=== PATIENT | male | born 1995 | race Caucasian/White ===

== ENCOUNTER 2019-05-30 20:30 | Emergency (ER) | payer SELFPAY ==
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
[2019-05-31 00:25] VITALS: BP 128/77
--- NOTE | 2019-05-31 05:36 | Diagnostic Imaging Report ---
LOU REN [facility] [id number] [id number] Report Submission Date: May 30, 2019 10:03:09 PM CDT Patient Study Name: GILMA JAMISON Date: May 30, 2019 9:00:55 PM CDT Modality Type: DX Gender: M Description: FOOT 3 VIEWS OR MORE : 89 Institution: [facility] Physician: LOU REN Left foot three views History: Dorsal foot pain Findings: The left foot is unremarkable without fracture, dislocation, arthropathy, or focal bone lesion. Electronically signed on May 30, 2019 10:03:09 PM CDT by: Nick ENG
--- NOTE | 2019-05-31 05:36 | Diagnostic Imaging Report ---
LOU REN [facility] [id number] [facility].[address] [id number] Report Submission Date: May 30, 2019 8:59:34 PM CDT Patient Study Name: GILMA JAMISON Date: May 30, 2019 8:33:42 PM CDT Modality Type: DX Gender: M Description: ANKLE 3 VIEWS OR MORE : 89 Institution: [facility] Physician: LOU REN Left ankle, 3 views HISTORY Ankle pain FINDINGS No fracture, dislocation or abnormal bone production or destruction is identified. IMPRESSION Normal. Electronically signed on May 30, 2019 8:59:34 PM CDT by: Sony ENG
== END 2019-05-30 22:25 | disposition home or self-care (01) ==
LOC: ED 20:30
DX: S93.402A Sprain of unspecified ligament of left ankle, initial encounter (principal); W22.8XXA Striking against or struck by other objects, initial encounter; Y93.89 Activity, other specified
CPT/HCPCS: 73610; 73630; 99282